=== PATIENT | female | born 1955 | race American Indian/Alaskan Native ===

== ENCOUNTER 2016-10-05 16:44 | Emergency (ER) | payer BC ==
[2016-10-05] MEDS ORDERED: BOOSTRIX IM ONE (17:18)
[2016-10-05] MEDS ORDERED: NORCO 5/325 PO ONE (17:18)
[2016-10-05] MEDS ORDERED: BACTRIM DS PO ONE (17:18)
[2016-10-05] MEDS ORDERED: TRIPLE ANTIBIOTIC TP ONE ×2 (18:25→18:49)
[2016-10-05] MEDS ORDERED: ZOFRAN ODT ONE (18:26)
--- NOTE | 2016-10-05 18:27 | Cat Scan Report ---
FINAL REPORT EXAM: CT HEAD/BRAIN WO CON HISTORY: Fall, head trauma TECHNIQUE: CT examination of the head without IV contrast PRIORS: None. FINDINGS: Developmental variation includes a cavum septum pellucidum and vergae. No acute air-fluid level visualized in the included air-filled sinuses. Bone windows demonstrate no acute fracture. The brain is without mass, mass effect, hemorrhage, or acute infarct. There is no extra-axial intracranial bleed, brain bleed, or midline shift. The ventricles and sulci are age-appropriate. Very small CSF density in the basal ganglia bilaterally is suggestive of chronic lacunar infarcts. IMPRESSION: No acute CVA, intracranial bleed, or brain mass
[2016-10-05] MEDS ORDERED: NACL 0.9% 500 ML IR ONE (18:28)
--- NOTE | 2016-10-05 18:30 | Cat Scan Report ---
FINAL REPORT EXAM: CT CERVICAL SPINE WO CON HISTORY: fall neck pain TECHNIQUE: CT examination of the cervical spine without IV contrast PRIORS: None. FINDINGS: Prevertebral soft tissues are without swelling. No evidence of cervical fracture or vertebral compression. Degenerative changes are multilevel at the vertebral endplates, facet joints, and uncinate joints. Anterolisthesis: None. Retrolisthesis: None. Disc narrowing: C4-5 slight, C5-6 severe Vertebral endplate, uncinate, and facet degenerative hypertrophic change is associated with slight osseous neural foraminal stenosis. IMPRESSION: No acute skeletal pathology in the cervical spine Multilevel degenerative changes and disc narrowing
[2016-10-05] MEDS ORDERED: CATAPRES PO ONE (18:55)
--- NOTE | 2016-10-05 18:55 | Emergency Department Report ---
HPI - General Chief Complaint: Fall Time Seen by Provider: 10/05/16 16:56 - HPI HPI: This is a 61-year-old Afro-[place] female presents to the emergency department from home with complaint of a large scalp abrasion/skin tear and multiple abrasions along the fingers, a headache, and right pinky finger pain, after the patient fell and hit her head. She went face down into her concrete driveway and slipped slightly. She thinks she was unconscious for about 45 seconds. She denies any vision change, slurred speech, chest pain, shortness of breath, fever. She also has some mild pain to the right side of the neck but no restriction to range of motion. She is not on any blood thinners. She did not take anything for symptoms prior to presentation. She has a past medical history of hypertension. She [facility] to [facility] for her primary care needs. ED Past Medical Hx - Past Medical History Previous Medical History?: Yes Hx Hypertension: Yes - Surgical History Past Surgical History?: Yes Additional Surgical History: BILATERAL KNEES, ETOPIC - Social History Smoking Status: Never Smoker Substance Use Type: None - Medications Home Medications: Home Medications Medication Instructions Recorded Confirmed Last Taken Type Estradiol [Minivelle] 1 each TRANSDERMA UNK 10/05/16 10/05/16 Unknown History HYDROcodone/APAP 5-325 [[place] 1 each PO Q6HR PRN #10 tablet 10/05/16 Unknown Rx 5/325] Progesterone,Micronized 1 tab PO DAILY 10/05/16 10/05/16 Unknown History [Progesterone] Sulfamethoxazole/Trimethoprim 1 each PO BID #10 tablet 10/05/16 Unknown Rx [Bactrim DS TAB] Zolpidem Tartrate [Zolpidem 1 tab PO HS 10/05/16 10/05/16 Unknown History Tartrate] amLODIPine [Norvasc] 5 mg PO DAILY #30 tab 10/05/16 Unknown Rx ED Review of Systems ROS: Stated complaint: FALL Other details as noted in HPI Comment: All other systems reviewed and negative Constitutional: denies: chills, fever Eyes: denies: eye pain, eye discharge, vision change ENT: denies: ear pain, throat pain Respiratory: denies: cough, shortness of breath, wheezing Cardiovascular: denies: chest pain, palpitations Gastrointestinal: denies: abdominal pain, nausea, diarrhea Genitourinary: denies: urgency, dysuria, discharge Musculoskeletal: denies: back pain, joint swelling Skin: other (skin tear/abrasions). denies: rash Neurological: headache. denies: numbness, paresthesias Physical Exam - Physical Exam Vital Signs: Vital Signs 10/05/16 16:52 Temperature 97.8 F Pulse Rate 90 Respiratory 16 Rate Blood Pressure 180/90 O2 Sat by Pulse 97 Oximetry Physical Exam: GENERAL: The patient is well-developed well-nourished HEENT: Normocephalic. Atraumatic. Extraocular motions are intact. Patient has moist mucous membranes. Pupils equal reactive to light bilaterally. No nystagmus. NECK: Supple. No midline discomfort, step-off or deformity. There is some reproducible pain to the right lateral cervical muscles. Full range of motion. CHEST/LUNGS: Clear to auscultation. There is no respiratory distress noted. HEART/CARDIOVASCULAR: Regular. There is no tachycardia. There is no gallop rub or murmur. ABDOMEN: Abdomen is soft, nontender. Patient has normal bowel sounds. There is no abdominal distention. SKIN: There is a large abrasion to the front right side of the scalp that has completely removed and area of hair. There are multiple abrasions to the dorsum of the fingers of the bilateral hands between the DIP and PIP joints. No current bleeding, weeping, drainage or any signs or symptoms of infection. NEURO: The patient is awake, alert, and oriented. The patient is cooperative. The patient has no focal neurologic deficits. The patient has normal speech. Cranial nerves II-12 grossly intact. MUSCULOSKELETAL: There is some mild tenderness to palpation along the right fifth/little finger but no obvious deformity. There is no limitation range of motion. There is no evidence of acute injury. Muscle strength 5 out of 5 upper and lower extremities bilaterally. Cap refill less than 2 seconds. Radial pulses +2 over 4 bilaterally. ED Course Vital Signs 10/05/16 16:52 Temperature 97.8 F Pulse Rate 90 Respiratory 16 Rate Blood Pressure 180/90 O2 Sat by Pulse 97 Oximetry ED Medical Decision Making - Radiology Data Radiology results: report reviewed, image reviewed interpreted by me: X-ray of the right pinky/little finger does not show any fracture, dislocation or any acute process. CT of the head does not show any acute process including no hemorrhage, mass, shift, diffuse edema or skull fracture. CT of the cervical spine does not show any fracture, dislocation or any acute process. - Medical Decision Making 61-year-old female presents to the emergency department after falling and hitting her head on concrete which caused a large scalp abrasion and took off a chunk of hair. She had a 45 second loss of consciousness but then was once again awake and alert. There is no focal, motor or sensory deficits and her cranial nerves are intact. CT of the head does not show any bleed, shift, mass , fracture or any acute process. CT of the cervical spine also does not show any fracture, dislocation, subluxation or any acute process. The patient was given a [place] for pain. She was seen in a tetanus vaccination booster. She was given a dose of Bactrim for prophylaxis against infection. It is possible that the patient could've had a concussion but she does not display any postconcussive symptoms at this time other than some headache which is not unusual given the size of the abrasion and the head trauma. Vital signs stable but does show some hypertension. The patient is not on any blood pressure medications but does have some history of hypertension in the past. She was given a dose of Catapres here. She was started on Norvasc 5 mg to be taken daily. Been encouraged to chart picker a blood pressure cuff and follow-up with her primary care doctor tomorrow or Sunday. She will return to the ER with any worsening of her symptoms or any acute distress. She understands and agrees to the plan. - Differential Diagnosis skull fracture, brain bleed, laceration, abrasion Critical Care Time: No Critical care attestation.: If time is entered above; I have spent that time in minutes in the direct care of this critically ill patient, excluding procedure time. ED Disposition Clinical Impression: Fall Qualifiers: Encounter type: initial encounter Qualified Code(s): W19.XXXA - Unspecified fall, initial encounter Scalp abrasion Qualifiers: Encounter type: initial encounter Qualified Code(s): S00.01XA - Abrasion of scalp, initial encounter Headache Qualifiers: Headache type: unspecified Headache chronicity pattern: acute headache Intractability: not intractable Qualified Code(s): R51 - Headache Hypertension Qualifiers: Hypertension type: essential hypertension Qualified Code(s): I10 - Essential ( primary) hypertension Disposition: DC-01 TO HOME OR SELFCARE Is pt being admited?: No Condition: Good Instructions: Hypertension (ED) Prescriptions: amLODIPine [Norvasc] 5 mg PO DAILY #30 tab HYDROcodone/APAP 5-325 [[place] 5/325] 1 each PO Q6HR PRN #10 tablet PRN Reason: Pain Sulfamethoxazole/Trimethoprim [Bactrim DS TAB] 1 each PO BID #10 tablet Referrals: PRIMARY CARE, [Primary Care Provider] - [facility] Time of Disposition: 18:57
[2016-10-05 19:05] VITALS: BP 173/98
--- NOTE | 2016-10-06 08:50 | XRay Report ---
RIGHT FINGERS, 3 VIEWS History: Finger pain, fifth digit pain. Findings: There is borderline bone mineralization. No acute osseous findings or joint pathology is detected. Normal soft tissues. Impression: Unremarkable exam.
== END 2016-10-05 19:15 | disposition home or self-care (01) ==
LOC: ED 16:44
DX: S00.01XA Abrasion of scalp, initial encounter (principal); I10 Essential (primary) hypertension; W01.0XXA Fall on same level from slipping, tripping and stumbling without subsequent striking against object, initial encounter; Y93.89 Activity, other specified; Y92.89 Other specified places as the place of occurrence of the external cause; Y99.8 Other external cause status
CPT/HCPCS: 70450; 72125; 90471; 90715; 99284; A6250; Q0162

== ENCOUNTER 2016-11-20 08:34 | Outpatient (CLI) | payer BC ==
--- NOTE | 2016-11-20 15:42 | Mammography Report ---
BILATERAL DIGITAL SCREENING MAMMOGRAM with CAD : 11/20/16 08:34:00 CLINICAL: Routine screening. COMPARISON:11/19/15 FINDINGS: The breasts are heterogeneously dense, which may obscure small masses. No mass, architectural distortion or suspicious calcifications. IMPRESSION: No mammographic evidence of malignancy. BI-RADS CATEGORY: 2 -- Benign RECOMMENDATION: Routine mammographic screening in one year. COMMENT: Patient follow-up letters are generated by our [employer] application.
== END 2016-11-20 08:35 | disposition home or self-care (01) ==
LOC: SPVWC 08:34
PROVIDERS: ATTEND Obstetrics & Gynecology Gynecology
DX: Z12.31 Encounter for screening mammogram for malignant neoplasm of breast (principal)
CPT/HCPCS: 77067; G0202

== ENCOUNTER 2017-01-24 07:55 | Outpatient (CLI) | payer BC ==
--- NOTE | 2017-01-24 09:41 | Cat Scan Report ---
FINAL REPORT PROCEDURE: CT CHEST WO CON TECHNIQUE: Axial sections and coronal and sagittal reformatted images were viewed through the chest. HISTORY: DORSALGIA COMPARISON: Chest one view 03/31/2015 FINDINGS: Mild degenerative changes of the spine without CT evident acute osseous abnormality is seen. Lack of IV contrast limits evaluation of the solid organs. There is no suspected hilar or mediastinal lymphadenopathy. The heart is normal in size. There is no pericardial or pleural effusion. There is no thoracic or included abdominal aortic aneurysm. 6 millimeter central hepatic dome hypodensity is present. The visualized portions of the spleen, pancreas, gallbladder, adrenal glands, and left kidney are normal. Sub millimeter calcification of the upper pole of the right kidney is seen. There is no pneumothorax. There is no pulmonary parenchymal mass or nodule. Mild bibasilar subsegmental atelectasis is seen. FINDINGS: IMPRESSION: No CT evident acute intrathoracic process. 6 millimeter hepatic hypodensity likely a benign cyst. Tiny upper pole right renal calculus. Mild degenerative changes of the spine without CT evident acute osseous abnormality. If desired, most sensitive exclusion of spinal symptomatology may be made with MRI.
== END 2017-01-24 07:56 | disposition home or self-care (01) ==
LOC: CT 07:55
PROVIDERS: ATTEND Family Medicine Adult Medicine
DX: J18.9 Pneumonia, unspecified organism (principal); M47.894 Other spondylosis, thoracic region; N20.0 Calculus of kidney; J98.11 Atelectasis; N28.89 Other specified disorders of kidney and ureter
CPT/HCPCS: 71250

== ENCOUNTER 2017-11-23 11:01 | Outpatient (CLI) | payer BC ==
--- NOTE | 2017-11-23 11:43 | Mammography Report ---
BILATERAL MAMMOGRAM: FINDINGS: There are scattered fibroglandular densities (approximately 25%-50% glandular). No mass, distortion, suspicious calcification, or skin change is seen. No significant change when compared to examinations dating back to November 2015. CAD was utilized. IMPRESSION: Negative mammogram. There is no mammographic evidence of malignancy. RECOMMENDATION: Follow-up per ACS guidelines. BI-RADS CATEGORY: 1 = Negative ACR BI-RADS MAMMOGRAPHIC CODES: 0 = Needs additional imaging evaluation; 1 = Negative; 2 = Benign; 3 = Probably benign; 4 = Suspicious; 5 = Malignant; 6 = Known biopsy-proven malignancy COMMENT: 1. Dense breast tissue, i.e., adenosis, fibrocystic changes, etc., may obscure an underlying neoplasm. 2. Approximately 10% of cancers are not detected with mammography. 3. A negative mammography report should not delay biopsy if a clinically suspicious mass is present. COMMENT: Patient follow-up letters are generated in [employer]
== END 2017-11-23 11:02 | disposition home or self-care (01) ==
LOC: SPVWC 11:01
PROVIDERS: ATTEND Obstetrics & Gynecology Gynecology
DX: Z12.31 Encounter for screening mammogram for malignant neoplasm of breast (principal); I10 Essential (primary) hypertension; K21.9 Gastro-esophageal reflux disease without esophagitis; E66.9 Obesity, unspecified; E78.5 Hyperlipidemia, unspecified
CPT/HCPCS: 77067

== ENCOUNTER 2019-06-09 10:11 | Outpatient (CLI) | payer BC ==
--- NOTE | 2019-06-11 09:04 | Mammography Report ---
DIGITAL SCREENING MAMMOGRAM WITH CAD, 06/09/2019 INDICATION: Routine screening mammography. TECHNIQUE: Digital bilateral 2D mammography was obtained in the craniocaudal and mediolateral obliq ue projections. This examination was interpreted with the benefit of Computer-Aided Detection analysi s. COMPARISON: 11/23/2017 FINDINGS: Breast Density: The breasts are heterogeneously dense, which may obscure small masses. A round circumscribed mass in the outer breast is new and requires additional imaging. It measures 2. 6 x 2.4 x 2.1 cm. A low-density circumscribed right upper outer nodule or lymph node is unchanged. No architectural distortion or suspicious calcifications. There is no evidence of dominant mass, suspic ious calcifications or architectural distortion in the left breast. IMPRESSION: A 2.6 cm right breast mass requiring additional imaging. Recommend recall for right breas t ultrasound. Follow up recommendation: Ultrasound Category 0: Incomplete. Needs additional imaging evaluation and/or prior mammograms for comparison. A "normal" or negative report should not discourage follow up or biopsy of a clinically significant f inding. A written summary of these findings will be mailed to the patient. The patient will be entered into a mammography reporting system which will generate a reminder letter for the patient's next appointmen t at the appropriate interval. The [employer] recommends yearly mammograms starting at age 40 and continuing as l raina as a woman is in good health. Breast MRI is recommended for women with an approximate 20-25% or greater lifetime risk of breast cancer, including women with a strong family history of breast or ova tim cancer or who have been treated for Hodgkin's disease. Signer Name: Ramez Hernandez MD Signed: 06/11/2019 9:00 AM Workstation Name: [id number]
== END 2019-06-09 10:12 | disposition home or self-care (01) ==
LOC: SPVWC 10:11
PROVIDERS: ATTEND Family Medicine Adult Medicine
DX: Z12.31 Encounter for screening mammogram for malignant neoplasm of breast (principal)
CPT/HCPCS: 77067